=== PATIENT | female | born 1950 | race Caucasian/White ===

== ENCOUNTER 2018-03-29 02:43 | Inpatient (IN) | payer OTHER ==
[~2018-03-29] VITALS: Ht 157.5 cm; Wt 73.5 kg
[~2018-03-29 02:43] MED LIST: CRESTOR20 M2 PO; FERROUS SULFAT325 M3 PO; FLONASE ALLERG9.9 ML; HYZAAR 100-251 EACH PO; MULTIVITAMINS1 EAC9 PO; NAPROXEN500 M2 PO; TRAZODONE HCL50 M1 PO; ULTRAM50 M1 PO; VENTOLIN HFA18 GM INH; VITAMIN D31000 UNI1 PO; XANAX0.5 M1 PO; ZYRTEC10 M3 PO
--- NOTE | 2018-03-29 10:26 | Admission Core Measures ---
Acute Coronary Syndrome (CM) ACS Core Measures Acute Coronary Syndrome Diagnosis No Congestive Heart Failure (NEW) CHF Core Measures Congestive Heart Failure Diagnosis No Cerebrovascular Accident (NEW) CVA Core Measures CVA/TIA Diagnosis No Venous Thromboembolism VTE Core Kayley (View Protocol) VTE Risk Factors Surgery No Mechanical VTE Prophylaxis d/t N/A MechProphylax Ordered No VTE Pharm Prophylaxis d/t NA PharmProphylax ordered Problem List As ranked by this Provider includes Assessment & Plan 1. Unilateral primary osteoarthritis, right knee HOME MEDS Home Med List Albuterol Sulfate (Ventolin Hfa) 90 MCG HFA.AER.AD 2 PUF INH Q4-6 PRN PRN ASTHMA-ALLERGY (Reported) Alprazolam (Xanax) 0.5 MG TABLET 1 TAB PO DAILY NEEDED ANXIETY (Reported) Cetirizine HCl (Zyrtec) 10 MG TABLET 1 TAB PO DAILY ALLERGY (Reported) Cholecalciferol (Vitamin D3) (Vitamin D3) 1,000 UNIT CAPSULE 2 CAP PO DAILY SUPPLEMENT (Reported) Ferrous Sulfate 325 MG (65 MG IRON) TABLET 1 TAB PO DAILY SUPPLEMENT ( Reported) Losartan/Hydrochlorothiazide (Hyzaar 100-25 Tablet) 100 MG-25 MG TABLET 1 TAB PO DAILY HTN (Reported) Multiple Vitamin (Multivitamins) 1 EACH TABLET 1 TAB PO DAILY SUPPLEMENT ( Reported) Naproxen 500 MG TABLET 1 TAB PO BID PAIN (Reported) Rosuvastatin Calcium (Crestor) 20 MG TABLET 1 TAB PO DAILY CHOLESTEROL ( Reported) Tramadol HCl (Ultram) 50 MG TABLET 1 TAB PO BIDP PRN PAIN (Reported) Trazodone HCl 50 MG TABLET 1 TAB PO QPM INSOMNIA (Reported)
--- NOTE | 2018-03-29 10:30 | Patient Discharge Instructions ---
Discharge Instructions General Discharge Information You were seen/treated for: Right knee pain related to unilateral primary osteoarthritis You had these procedures: Right total knee replacement Watch for these problems: Increasing pain despite the use of pain medication Increasing redness, warmth or swelling Drainage of any type from incision Inability to bear weight on operative leg Persistent nausea and vomiting Fever greater than 101.5 degrees Do not soak the wound: Yes No bath, but you may shower: Yes Other wound care: Please keep wound clean and dry. No ointments or lotions of any type on or near incision at any time. No exceptions. Your dressing will be changed by your nurse on the second day after your surgery. Daily dry dressing changes are recommended each day thereafter. Do not soak your wound in a bath at any time until otherwise indicated by your surgeon. You may shower, please dry wound immediately after shower with a clean towel. Special Instructions: Constipation: Pain medication can cause constipation. Dr. Dee has recommended that you take Colace and miralax each day. You may discontinue this medication if you develop loose stool or diarrhea. If you wish to continue this medication, it is available over the counter. If you are unable to move your bowels after several days, if you are unable to pass gas and are developing bloating, nausea, or vomiting as a result, please contact your doctor. Diet Continue normal diet: Yes Recommended Diet: Heart Healthy Activity Full Activity/No Limits: No Activity Self Limited: Yes Pounds, do NOT lift more than: 10 Acute Coronary Syndrome Inclusion Criteria At DC or during hospital stay patient has or had the following: ACS DIAGNOSIS No Discharge Core Measures Meds if any: Prescribed or Continued at Discharge Meds if any: NOT Prescribed or Continued at Discharge Congestive Heart Failure Inclusion Criteria At DC or during hospital stay patient has or had the following: CHF DIAGNOSIS No Discharge Core Measures Meds if any: Prescribed or Continued at Discharge Meds if any: NOT Prescribed or Continued at Discharge Cerebrovascular accident Inclusion Criteria At DC or during hospital stay patient has or had the following: CVA/TIA Diagnosis No Discharge Core Measures Meds if any: Prescribed or Continued at Discharge Meds if any: NOT Prescribed or Continued at Discharge Venous thromboembolism Inclusion Criteria VTE Diagnosis No VTE Type NONE VTE Confirmed by (Test) NONE Discharge Core Measures - Per Current guidelines, there needs to be overlap - treatment for the first 5 days of Warfarin therapy. - If discharged on Warfarin prior to 5 days of - overlap therapy, the patient will need to be - assessed for post discharge needs including - *Post discharge parental anticoagulation - *Warfarin and/or parental anticoagulation education - *Follow up date to check INR post discharge At least 5 days overlap therapy as Inpatient No Meds if any: Prescribed or Continued at Discharge Note: Overlap Therapy is Warfarin and Anticoagulant Meds if any: NOT Prescribed or Continued at Discharge
--- NOTE | 2018-03-29 10:32 | Surgical Discharge Summary ---
Visit Information Visit Dates Admission Date: 03/29/18 Discharge Date: 03/31/18 History of Present Illness Chief Complaint: Right knee pain related to unilateral primary osteoarthritis Surgical History Pertinent Surgical History: non-contributory Review of Systems: See H&P Hospital Course Course Attending Physician: Steve Dee MD Primary Care Physician: Dee Dee Schofield APRN Hospital Course: Patient was admitted to the hospital for an elective total joint replacement. The procedure was tolerated well and patient was transferred to a general surgical floor. Diet was advanced and tolerated.. The patient was evaluated and treated by physical therapy. At the time of hospital discharge, the vital signs were stable, neurovascular status was intact, and pain was controlled with the use of oral pain medications. Allergies: Coded Allergies: Influenza Virus Vaccines (UNKNOWN 03/28/18) STATINS (HMG-COA REDUCTASE) (UNKNOWN 03/28/18) clindamycin (UNKNOWN 03/28/18) Significant Procedures: right knee arthroplasty Disposition Summary Disposition Principal Diagnosis: Right knee unilateral primary osteoarthritis Additional Diagnosis: None Discharge Disposition: home health services Discharge Instructions General Discharge Information Code Status: Full Code Patient's Diet: Heart healthy, advance as tolerated Patient's Activity: WBAT Follow-Up Instructions/Appts: Follow up with Dr. Dee in 2 weeks from date of surgery Medications at Discharge Discharge Medications: Stop taking the following medications: Tramadol HCl (Ultram) 50 MG TABLET ORAL 2 x Daily as needed as needed for PAIN Naproxen (Naproxen) 500 MG TABLET ORAL TWICE DAILY Continue taking these medications: Losartan/Hydrochlorothiazide (Hyzaar 100-25 Tablet) 100 MG-25 MG TABLET 1 Tablet ORAL DAILY Rosuvastatin Calcium (Crestor) 20 MG TABLET 1 Tablet ORAL DAILY Multiple Vitamin (Multivitamins) 1 EACH TABLET 1 Tablet ORAL DAILY Cholecalciferol (Vitamin D3) (Vitamin D3) 1,000 UNIT CAPSULE 2 Capsule ORAL DAILY Ferrous Sulfate (Ferrous Sulfate) 325 MG (65 MG IRON) TABLET 1 Tablet ORAL DAILY Fluticasone Propionate (Flonase Allergy Relief) 50 MCG/ACTUATION SPRAY.SUSP Albuterol Sulfate (Ventolin Hfa) 90 MCG HFA.AER.AD 2 Puff Inhale through mouth EVERY 4-6 HOURS NEEDED as needed for ASTHMA- ALLERGY Trazodone HCl (Trazodone HCl) 50 MG TABLET 1 Tablet ORAL Every night Alprazolam (Xanax) 0.5 MG TABLET 1 Tablet ORAL DAILY NEEDED Cetirizine HCl (Zyrtec) 10 MG TABLET 1 Tablet ORAL DAILY Start taking the following new medications: Apixaban (Eliquis) 2.5 MG TABLET 1 Tablet ORAL TWICE DAILY Qty = 60 No Refills Docusate Sodium (Docusate Sodium) 100 MG CAPSULE 1 Tablet ORAL TWICE DAILY Qty = 30 No Refills Polyethylene Glycol 3350 (Miralax) 17 GRAM/DOSE POWDER 1 Packet ORAL DAILY NEEDED as needed for NO BM IN TWO DAYS Qty = 10 No Refills Hydromorphone HCl (Dilaudid) 2 MG TABLET 1 Tablet ORAL EVERY 4-6 HOURS NEEDED Qty = 36 No Refills Ondansetron (Zofran Odt) 4 MG TAB.RAPDIS 1 Tablet SUBLINGUAL THREE TIMES DAILY as needed for NAUSEA/VOMITING Qty = 10 No Refills
--- NOTE | 2018-03-29 12:38 | Operative Report ---
Operative/Inv Procedure Report Surgery Date: 03/29/18 Name of Procedure: Right total knee arthroplasty Pre-Operative Diagnosis: Primary osteoarthritis right knee Post-Operative Diagnosis: Same Estimated Blood Loss: less than 50ml Surgeon/Ticket Sorter: Luiz ARANDA,Steve JONES Anesthesia: block IV Fluids: See anesthesia record Implants: Jt triathlon posterior stabilized knee size 4 femur, size 3 tibia, 9 mm polyethylene insert and a asymmetric 29 patellar button Drains: None Specimens: Bone Tourniquet: This 58 minutes Complications: None Condition: Stable Operative Indication: Patient is a 67-year-old female is failed conservative treatment for her right knee osteoarthritis. She wished to proceed with a right total knee arthroscopy. The risks and benefits of the procedure were discussed with the patient in detail. A skilled setting and as necessary and provided by physician retail store assistant Jeremy Koch made with retraction limb positioning component assembly throughout the case. Operative/Procedure Note Note: Once informed consent was obtained and the correct limb was identified the patient brought to operating placed on table in supine position. After menstruation spinal anesthesia patient a Morel catheter placed in the patient's right lower extremity had a thigh tourniquet placed and was prepped and draped in sterile fashion. To begin the procedure standard midline incision was made for right total knee arthroscopy. Sharp dissection carried down through the skin and subcutaneous tissue. A medial parapatellar arthrotomy was performed and the patella was everted. Fat pads removed from the patella tendon. Patellar thickness was measured to be 22 mm and a plan resection of 9 mm was done using a patellar jig. Patella was then sized to be an asymmetric 29 patellar button. The clamp was placed on that for the drill holes and the drill holes were made without complication. The knee was placed in flexion the patella was protected and retracted laterally. Step drill was used to enter the intramedullary canal of the femur for the distal femoral cutting guide. Distal femoral cutting guide was placed with a 6 valgus and 10 mm bony resection plan. The distal femoral cut was made without complication bone was passed off as specimen. The sizing guide was placed in the distal femur and the femur was sized to be a size 4 femur. A size 4 4-in-1 cutting block was placed in the distal femur and the anterior posterior and chamfer cuts were made without complication. Bone was again passed off. The box cut guide for a size 4 femur was then placed and the box cut for posterior stabilized knee was made. At this point the menisci were then sharply resected with a #10 blade. The cruciate ligament are to been resected. The step drill was then used to enter the intramedullary canal of the tibia for the tibial cutting guide. Pickle fork retractor was placed posterior to the tibia and the tibia translated anteriorly. The tibial cutting guide was placed and a planned resection of 4 mm of bone off of the tibia was done through the tibial cutting guide. Tibia sized to be size 3 tibial tray. Trial reduction was done with a 4 femur a 9 mm polyethylene insert and a 3 tibial tray. The knee had full extension and was stable at 0 and 60 of flexion. It was stable to varus and valgus stress at 0 and 60. The patella tracked nicely. The rotation of the tibial component was marked and the components removed. The tibial tray was then pinned back in place and the keel cut was made. This point all instruments were removed from the knee and the knee was pulse lavaged. Cement was mixed on the back table. The components were cemented in place with the tibia cemented first followed by the femoral component and the patellar button. A 9 mm polyethylene insert was placed on the knee was in extension while the cement hardened all excess cement was removed with curettes. Once the cement was hardened we took it through range of motion again was found to be stable. A 9 mm polyethylene insert was opened and locked into the tibial tray. The knee was pulse lavaged and the tourniquet was released. The arthrotomy was closed with #1 Vicryl interrupted sutures. Subcu tissues were closed with #1 Vicryl and 2-0 Vicryl interrupted sutures. The skin was closed anh and sterile dressings applied. The patient was awakened taken problems and percussion.
[2018-03-29 13:30] VITALS: BP 130/70
[2018-03-29 13:52] VITALS: BP 120/70
--- NOTE | 2018-03-29 14:14 | PN- Orthopedic ---
Subjective Subjective: poc s/p right tka no major issues at this time does not has complete return of sensation motor fxn startingti return ti toes deneis cp, sob, no n+v with diet Objective Vital Signs and I&Os Vital Signs Date Time Temp Pulse Resp B/P B/P Pulse O2 O2 Flow FiO2 Mean Ox Delivery Rate 03/29 1352 98.0 68 18 120/70 97 03/29 1330 97.9 72 18 130/70 97 Room Air Intake & Output 03/29 1600 03/29 0800 03/29 0000 03/28 1600 03/28 0803/28 0000 Intake Total Output Total Balance Patient 162 lb 162 lb Weight Physical Exam: cv: rrr lungs: clear abd: soft, +bs ext: decresed motor/sensory distally(spinal block) drsg dry Assessment/Plan Assessment/Plan s/p right tka decresed bilat le fxn due to continued lora plan hold pt for now chnaged statin drug per pharmacy titrate pain meds home d/c planning Core Measures Venous Thromboembolism VTE Risk Factors Surgery No Mechanical VTE Prophylaxis d/t N/A MechProphylax Ordered No VTE Pharm Prophylaxis d/t NA PharmProphylax ordered
--- NOTE | 2018-03-29 15:15 | Cons- Medical ---
General Information and HPI Allergies/Medications Allergies: Coded Allergies: Influenza Virus Vaccines (UNKNOWN 03/28/18) STATINS (HMG-COA REDUCTASE) (UNKNOWN 03/28/18) clindamycin (UNKNOWN 03/28/18) Home Med List: Albuterol Sulfate (Ventolin Hfa) 90 MCG HFA.AER.AD 2 PUF INH Q4-6 PRN PRN ASTHMA-ALLERGY (Reported) Alprazolam (Xanax) 0.5 MG TABLET 1 TAB PO DAILY NEEDED ANXIETY (Reported) Cetirizine HCl (Zyrtec) 10 MG TABLET 1 TAB PO DAILY ALLERGY (Reported) Cholecalciferol (Vitamin D3) (Vitamin D3) 1,000 UNIT CAPSULE 2 CAP PO DAILY SUPPLEMENT (Reported) Ferrous Sulfate 325 MG (65 MG IRON) TABLET 1 TAB PO DAILY SUPPLEMENT ( Reported) Fluticasone Propionate (Flonase Allergy Relief) 50 MCG/ACTUATION SPRAY.SUSP ALLERGY (Reported) Losartan/Hydrochlorothiazide (Hyzaar 100-25 Tablet) 100 MG-25 MG TABLET 1 TAB PO DAILY HTN (Reported) Multiple Vitamin (Multivitamins) 1 EACH TABLET 1 TAB PO DAILY SUPPLEMENT ( Reported) Naproxen 500 MG TABLET 1 TAB PO BID PAIN (Reported) Rosuvastatin Calcium (Crestor) 20 MG TABLET 1 TAB PO DAILY CHOLESTEROL ( Reported) Tramadol HCl (Ultram) 50 MG TABLET 1 TAB PO BIDP PRN PAIN (Reported) Trazodone HCl 50 MG TABLET 1 TAB PO QPM INSOMNIA (Reported) Past History Medical History Blood Transfusion Hx: No Neurological: NONE EENT: allergies, cataracts Cardiovascular: hypertension, hyperlipidemia Respiratory: asthma Gastrointestinal: NONE Hepatic: NONE Renal: NONE Musculoskeletal: osteoarthritis Psychiatric: anxiety, depression Endocrine: NONE Blood Disorders: NONE Cancer(s): NONE 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 Home Services at Home: None Smoking Status: Former Smoker Assessment/Plan Consult Acknowledgment - Thank you for your consult request.
[2018-03-29 17:32] VITALS: BP 122/80
[2018-03-29 19:30] VITALS: BP 120/80
[2018-03-30 00:08] VITALS: BP 108/58
[2018-03-30 03:30] VITALS: BP 100/50
[2018-03-30 07:05] VITALS: BP 105/56
--- NOTE | 2018-03-30 07:58 | PN- Orthopedic ---
Subjective Subjective: Patient feels well, minimal pain, no fever, no flulike illness, no chest pain or shortness of breath. No acute events overnight. She feels itchy all over, there is no rash, she thinks it is from the Percocet. Objective Vital Signs and I&Os Vital Signs Date Time Temp Pulse Resp B/P B/P Pulse O2 O2 Flow FiO2 Mean Ox Delivery Rate 03/30 0705 98.6 89 20 105/56 95 Room Air 03/30 0330 98.7 81 20 100/50 94 Room Air 03/30 0008 98.4 66 20 108/58 97 Room Air 03/29 1930 98.7 74 20 120/80 95 Room Air 03/29 1732 98.1 70 20 122/80 97 Room Air 03/29 1352 98.0 68 18 120/70 97 03/29 1330 97.9 72 18 130/70 97 Room Air Intake & Output 03/30 0800 03/30 0000 03/29 1600 03/29 0800 03/29 0000 03/28 1600 Intake Total 340 650 Output Total 450 700 Balance -110 -50 Intake, Oral 340 650 Output, Urine 450 700 Patient 162 lb 162 lb Weight Physical Exam: Well-developed well-nourished no apparent distress. HEENT: Atraumatic, extraocular motion intact Neck: Supple, no lymphadenopathy Respiratory: No respiratory distress Extremities: No edema RIGHT lower extremity dressing in place, Incision line is clean dry and intact with minimal bloody drainage. No signs of infection. Mild joint effusion Range of motion is 5-80. Compression wrap in place. ALPS in place Neurovascularly intact distally Bilateral calves are supple, nontender. Neuro: Alert and oriented x3 Psych: Mood affect normal, normal memory normal judgment. Skin: Warm and dry, no rash on exposed skin Results Last 48 Hours of Labs: Laboratory Tests 03/30 0636 Chemistry Sodium Pending Potassium Pending Chloride Pending Carbon Dioxide Pending Anion Gap Pending BUN Pending Creatinine Pending BUN/Creatinine Ratio Pending Hematology CBC w Diff Pending WBC Pending RBC Pending Hgb Pending Hct Pending MCV Pending MCH Pending MCHC Pending RDW Pending Plt Count Pending MPV Pending Assessment/Plan Assessment/Plan Postop day #1 status post right total knee arthroplasty. Perioperative antibiotics. Pain medication as needed. Switch from Percocet to Dilaudid due to itching, consider Benadryl Celebrex daily per postop protocol Out of bed Physical therapy, weightbearing as tolerated DC IV fluids DC Morel catheter Regular diet Follow a.m. labs Eliquis for DVT prophylaxis ALPS for DVT prophylaxis Regular home meds Dressing change postop day 2 Disposition: Likely to home postop day 2 versus postop day 3 Core Measures Venous Thromboembolism VTE Risk Factors Surgery No Mechanical VTE Prophylaxis d/t N/A MechProphylax Ordered No VTE Pharm Prophylaxis d/t NA PharmProphylax ordered
[2018-03-30 08:21] LABS: ABSOLUTE BASOPHIL COUNT 0 /CUMM (0.0-0.2); ABSOLUTE EOSINOPHIL COUNT 0 /CUMM (0.0-0.7); ABSOLUTE LYMPH COUNT 1.9 /CUMM (1.2-3.4); BASOPHIL % 0.3 % (0.0-2.0); EOSINOPHIL % 0.1 % (0-5); GRANULOCYTE % 73.1 % (42.2-75.2); HEMATOCRIT 27.2 % (37-47); MEAN CORPUSCULAR HGB 31.8 PG (27.0-31.0); MEAN CORPUSCULAR HGB CONC 34.1 G/DL (33.0-37.0); MEAN CORPUSCULAR VOLUME 93.4 FL (81.0-99.0); MEAN PLATELET VOLUME 7.9 FL (7.4-10.4); PLATELET COUNT 278 /CUMM (130-400); RBC DISTRIBUTION WIDTH 12.7 % (11.5-14.5); RED BLOOD CELL CT 2.91 /CUMM (4.20-5.40); WHITE BLOOD CELL COUNT 10.9 /CUMM (4.8-10.8)
[2018-03-30 11:46] VITALS: BP 100/70
[2018-03-30 14:22] VITALS: BP 100/60
[2018-03-30 22:25] VITALS: BP 100/60
--- NOTE | 2018-03-31 07:45 | PN- Orthopedic ---
Subjective Subjective: POD#2 S/P RIGHT TKA NO MAJOR ISSUES OVERNIGHT DENEIS CP, SOB, NO N+V WITH DIET AMBULATING WELL WITH PT PAIN WELL CONTROLLED Objective Vital Signs and I&Os Vital Signs Date Time Temp Pulse Resp B/P B/P Pulse O2 O2 Flow FiO2 Mean Ox Delivery Rate 03/305 99.4 73 19 100/60 95 Room Air 03/30 1422 99.4 68 18 100/60 98 Room Air 03/30 1146 99.0 68 20 100/70 98 Room Air 03/30 1014 61 106/62 Intake & Output 03/31 0800 03/31 0000 03/30 1600 03/30 0800 03/30 0000 03/29 1600 Intake Total 360 480 480 340 650 Output Total 977 428 8033 450 700 Balance 60 -120 -520 -110 -50 Intake, Oral 360 480 480 340 650 Output, Urine 787 404 9977 450 700 Patient 162 lb Weight Physical Exam: CV: RRR LUNGS; CLEAR ABD: SOFT, +BS EXT: DRSG CHANGED, WOUND C/D/I NO CALF TENDERNESS BILAT DISTAL CMS INTACT Assessment/Plan Assessment/Plan ORTHO STABLE PLAN HOME D/C TODAY F/U DR LEIVA IN TWO WEEKS Core Measures Venous Thromboembolism VTE Risk Factors Surgery No Mechanical VTE Prophylaxis d/t N/A MechProphylax Ordered No VTE Pharm Prophylaxis d/t NA PharmProphylax ordered
[2018-03-31] MEDS ORDERED: ELIQUIS2.5 M1 PO (07:52)
[2018-03-31] MEDS ORDERED: DILAUDID2 M1 PO ×2 (07:54→11:42)
[2018-03-31] MEDS ORDERED: ZOFRAN ODT4 M1 SL (07:59)
[2018-03-31] MEDS ORDERED: MIRALAX119 GM PO (07:59)
[2018-03-31] MEDS ORDERED: DOCUSATE SODIU100 M3 PO (07:59)
[2018-03-31 10:02] VITALS: BP 120/60
--- NOTE | 2018-03-31 11:05 | RADIOLOGY REPORT ---
EXAMINATION: XR KNEE, RIGHT CLINICAL INFORMATION: Status post right total knee arthroplasty. COMPARISON: None TECHNIQUE: Two views of the right knee. FINDINGS: Prosthetic components of the right total knee arthroplasty are appropriately aligned. No periprosthetic fracture. Gas from recent surgery is present in the joint and surrounding soft tissues. A joint effusion is present. IMPRESSION: Appropriate alignment of the right total knee arthroplasty.
[2018-03-31 11:12] VITALS: BP 120/60
== END 2018-03-31 11:48 | disposition home health service (06) | DRG 470 ==
LOC: SDA 02:43 → EDBEDREQ 11:45 → ENRESERV 12:22 → ENTRNSPT 12:53 → EDTRNSPTSTS 13:02 → CMPTRNSPT 13:09 → 2NA 13:16 → ENPENDDIS 03-31 08:03 → ENTRNSPT 03-31 11:24 → EDTRNSPT 03-31 11:32 → EDTRNSPTSTS 03-31 11:32 → CMPTRNSPT 03-31 11:48 → 2NA 03-31 11:48
PROVIDERS: Physician Assistant Surgical
PROC: 0SRC0J9 Replacement of Right Knee Joint with Synthetic Substitute, Cemented, Open Approach (ICD-10-PCS; principal; 2018-03-29)
PROC: 3E0T3BZ Introduction of Anesthetic Agent into Peripheral Nerves and Plexi, Percutaneous Approach (ICD-10-PCS; principal; 2018-03-29)
DX: M17.11 Unilateral primary osteoarthritis, right knee (principal); E78.5 Hyperlipidemia, unspecified; I10 Essential (primary) hypertension; J45.909 Unspecified asthma, uncomplicated; F41.9 Anxiety disorder, unspecified; F32.9 Major depressive disorder, single episode, unspecified; Z88.1 Allergy status to other antibiotic agents; Z88.7 Allergy status to serum and vaccine; Z98.1 Arthrodesis status
CPT/HCPCS: 2NAP; 36592; 73560-RT; 82436; 87086; 97110-GO; 97116-GO; 97161-GP; 97530-GO; C1713; C9290; J1100; J2405; J3370; J3490; J7040